=== PATIENT | male | born 1990 ===

== ENCOUNTER 2018-02-06 11:48 | Emergency (ER) | payer OTHER ==
[2018-02-06 12:19] VITALS: BP 143/80
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
== END 2018-02-06 13:08 | disposition home or self-care (01) ==
LOC: UCCORT 11:48
DX: S29.9XXA Unspecified injury of thorax, initial encounter (principal); S06.9X1A Unspecified intracranial injury with loss of consciousness of 30 minutes or less, initial encounter; V86.59XA Driver of other special all-terrain or other off-road motor vehicle injured in nontraffic accident, initial encounter; Y93.I9 Activity, other involving external motion; Y92.9 Unspecified place or not applicable; F17.210 Nicotine dependence, cigarettes, uncomplicated; Z88.0 Allergy status to penicillin
CPT/HCPCS: 99212; G0463

== ENCOUNTER 2019-03-09 09:55 | Observation (INO) | payer OTHER ==
[~2019-03-09 09:55] MED LIST: Buffered Lidocaine 1% SYRIN* 1 ML/SYRINGE INTRADERM ONE; Famotidine IV* 10 MG/ML 2 ML (20 mg) IV ONE; Lactated Ringers 1000 ML Bag* 1,000 ML IV SCH
[2019-03-09] MEDS ORDERED: Famotidine IV* 10 MG/ML 2 ML (20 mg) ONE (10:14)
[2019-03-09] MEDS ORDERED: Lidocaine 2% PF * 5 ML VIAL ONE (11:22)
[2019-03-09] MEDS ORDERED: Cisatracurium* 2 MG/ML MDV 5 ML ONE (11:22)
[2019-03-09] MEDS ORDERED: fentaNYL* 50 MCG/ML 5 ML VIAL (250 MCG VIAL) ONE (11:22)
[2019-03-09] MEDS ORDERED: Propofol* 10 MG/ML 20 ML BTL ONE ×2 (11:22→13:37)
[2019-03-09] MEDS ORDERED: Dexamethasone IV* 4 MG/ML 1 ML (4 MG) ONE (11:22)
[2019-03-09] MEDS ORDERED: Ondansetron INJ* 2 MG/ML VIAL ONE (11:22)
[2019-03-09] MEDS ORDERED: Midazolam* 1 MG/ML 5 ML VIAL (5 MG) ONE (11:22)
[2019-03-09] MEDS ORDERED: Artificial Tear OPHTH.OINT* 3.5 GM ONE (11:50)
[2019-03-09] MEDS ORDERED: Lidocaine 1% INJ* 10 MG/ML 30 ML SDV ONE ×2 (12:04→16:46)
[2019-03-09] MEDS ORDERED: Bupivacaine 0.25% SDV PF* 10 ML VIAL INJ ONE (12:53)
[2019-03-09] MEDS ORDERED: Phenylephrine 10 MG/ML VIAL* 1 ML VIAL ONE (14:11)
[2019-03-09] MEDS ORDERED: fentaNYL* 50 MCG/ML 2 ML VIAL (100 MCG VIAL) ONE ×2 (15:09→15:57)
[2019-03-09] MEDS ORDERED: Bupivacaine 0.5%* 50 ML VIAL ONE (16:46)
[2019-03-09] MEDS ORDERED: oxyCODONE/Acetamin 5/325 MG* TAB PO PRN (17:20)
[2019-03-09] MEDS ORDERED: Ondansetron INJ* 2 MG/ML VIAL IV PRN (17:20)
[2019-03-09] MEDS ORDERED: Acetaminophen TAB* 325 MG PO PRN (17:20)
[2019-03-09] MEDS ORDERED: Calcium Carbonate TAB* 1250 MG (CALCIUM 500 MG) PO SCH (18:00)
[2019-03-09] MEDS ORDERED: Lactated Ringers 1000 ML Bag* 1,000 ML IV SCH (18:00)
[2019-03-09] MEDS ORDERED: Calcium Carbonate TAB* 1250 MG (CALCIUM 500 MG) ONE (18:33)
[2019-03-09] MEDS: Ibuprofen TAB* 600 MG PO PRN (18:42)
[2019-03-09] MEDS: Calcium Carbonate TAB* 1250 MG (CALCIUM 500 MG) PO SCH (22:12)
--- NOTE | 2019-03-09 23:39 | OP ---
CC: Joanna Howard M.D.; Raymundo Law M.D.* OPERATIVE REPORT: DATE OF OPERATION: 03/09/19 - Inpatient, room SSU 339- DATE OF : 89 SERVICE: General Surgery. ATTENDING SURGEON: Michaela Armstrong M.D. BORING MACHINE OPERATOR: Paz Yung M.D. ANESTHESIOLOGIST: Dr. Kody Ray. PRIMARY CARE PHYSICIAN: Joanna Howard M.D. CANE PUSHER: Raymundo Law M.D. ANESTHESIA: General endotracheal anesthesia. PRE-OP DIAGNOSIS: Graves disease. POST-OP DIAGNOSIS: Graves disease. OPERATIVE PROCEDURE: Total thyroidectomy. ESTIMATED BLOOD LOSS: Approximately 50 cc. INTRAOPERATIVE FINDINGS: Enlarged hypervascular thyroid gland, all 4 parathyroid glands visualized and intact. INDICATIONS FOR SURGERY: Mr. Weiss is a very pleasant 28-year-old gentleman with a history of Graves disease that has been uncontrolled despite medical management. He did not wish to undergo MALIK therapy and he instead of wished to undergo a total thyroidectomy. He therefore gave his informed consent for a total thyroidectomy. He understood the risks, benefits, and alternatives of the procedure and he wished to proceed. DESCRIPTION OF PROCEDURE: The patient was brought back to the operating room and placed on the operating table in the supine position. Sequential compression devices were placed on the bilateral lower extremities for DVT prophylaxis. No antibiotics were administered. General endotracheal anesthesia was induced. The electrodes for the nerve monitor were attached to the patient. Both of his arms were tucked and a time-out was performed prior to administering local anesthesia into his neck. Local anesthesia consisting of 0.25% Marcaine and 1% lidocaine was infiltrated to the anterior neck. Next, his neck was prepped and draped in normal sterile fashion, and prior to beginning the procedure, a time-out was performed verifying the patient's name, MR number, and the procedure to be performed, which was a total thyroidectomy. The decision was to begin on the right side given that it was slightly larger and a transverse incision was made in the anterior neck in a natural crease line approximately 2 to 3 fingerbreadths above the sternal notch. The skin was divided down to the subcutaneous tissue. The subcutaneous tissue was divided and the platysma was also divided. Next, the inferior and superior subplatysmal flaps were developed, and then the median raphe between the strap muscles was identified and divided superiorly towards the thyroid cartilage and inferiorly towards the clavicles. Next, the strap muscles were retracted laterally and the isthmus of the thyroid was divided on using LigaSure at the midline. Once this was done, the inferior poles of the thyroids were lifted up and elevated, and the 2 EDWIN veins were divided and down to the trachea. Next, the isthmus was divided off of the trachea superiorly and inferiorly and then retracted towards the right side. The medial attachments of the right thyroid lobe were divided using a LigaSure and then once this was done, the thyroid lobe was able to be rotated medially to develop the lateral space after the strap muscles were gently retracted off of the thyroid lobe. Once the lateral space was developed, the middle thyroid vein was identified and divided and attention was then turned towards dividing the superior pole vessels using a combination of LigaSure and 2-0 silk ties. Once this was done, the thyroid was somewhat more mobile; however, the thyroid itself was a very enlarged hypervascular thyroid with a very large tubercle, so it was somewhat difficult to rotate medially and elevate up and out of the neck. The inferior parathyroid was identified and there was several normal appearing lymph nodes around the thyroid. Once the superior pole vessels were taken down, the thyroid lobe was again rotated medially out of the neck and the right recurrent laryngeal nerve was identified and its entire course was traced up to the insertion point of the cricothyroid membrane. Given how large tubercle was, it was difficult to divide the entire thyroid lobe safely away from the recurrent laryngeal nerve. Therefore, a very small amount of thyroid tubercle was left near the insertion point of the recurrent laryngeal nerve and then the remainder of the thyroid lobe was divided off of the trachea using a LigaSure and was carried off the table as specimen. The upper pole was marked with a stitch. Of note, the right upper parathyroid was also identified and it was very carefully skeletonized off of the right upper lobe and preserved on its pedicle. Both of the right upper and lower parathyroid glands appeared to be viable. Next, attention was turned towards the left thyroid lobe and in a similar fashion, the medial attachments of the left thyroid lobe to the trachea were divided using LigaSure and then the thyroid lobe was rotated medially and lateral space was developed by retracting off the strap muscles and using blunt dissection. The middle thyroid vein was identified and divided and then the superior pole vessels were taken down using a combination of LigaSure and 2-0 silk ties. The left recurrent laryngeal nerve was identified visually and with the nerve monitor. It was traced to its insertion point and protected. Once this was done, the thyroid lobe was divided off of the trachea using a LigaSure and carried off of the table as specimen after marking the upper pole with a stitch. The left lower parathyroid was noted to be somewhat enlarged, but it was also viable and left on a pedicle. The left upper parathyroid was also identified and its pedicle was also skeletonized and it also appeared to be viable and healthy after removing thyroid gland. Next, attention was turned towards obtaining hemostasis in the neck on both the right and lateral neck spaces after a Valsalva maneuver. After hemostasis was obtained, Tisseel was placed into the neck, and then the strap muscles were reapproximated using 3-0 Vicryl sutures in an interrupted fashion, and then the platysma was closed using interrupted 3-0 Vicryl sutures, and then the skin was closed using a running 4-0 Prolene suture. A sterile dressing was then placed and the patient' s anesthesia was reversed and he was taken to the PACU in stable condition. At the end of the case, all counts were correct and I was present during the entirety of the case. [id number]/[facility] #: [id number] JOHAN
[2019-03-10] MEDS ORDERED: Levothyroxine TAB* 150 MCG TAB PO SCH (06:00)
[2019-03-10 08:40] VITALS: BP 126/75
--- NOTE | 2019-03-10 09:04 | PN ---
Progress Note - Progress Note Date of Service: 03/10/19 Note: POD#1 s/p thyroidectomy Afeb, VS OK Erna liqs Voiding Throat sore, but not much pain No numbness or tingling Incis dressing clean and dry, no edema Voice normal Ca++ 9.4 Doing well s/p thyroidectomy Disch home
[2019-03-10] MEDS: Ibuprofen TAB* 600 MG PO PRN (09:12)
[2019-03-10] MEDS: Calcium Carbonate TAB* 1250 MG (CALCIUM 500 MG) PO SCH (09:15)
--- NOTE | 2019-03-10 11:43 | DS ---
DISCHARGE SUMMARY: DATE OF ADMISSION: 03/09/19 DATE OF DISCHARGE: 03/10/19 SERVICE: General Surgery. ATTENDING SURGEON: Michaela Armstrong MD ADMISSION DIAGNOSIS: Graves' disease. DISCHARGE DIAGNOSIS: Graves' disease. OPERATION: Total thyroidectomy. HOSPITAL COURSE: Mr. Weiss is a healthy 28-year-old gentleman with a history of Graves' disease, uncontrolled by medical management. He underwent an elective total thyroidectomy on 03/09/19 and was admitted overnight for observation. On day of discharge on postop day 1, he was doing very well. He had very few complaints other than a sore throat and a small amount of neck soreness. He was able to tolerate a regular diet. He was ambulating. He was urinating on his own. His vital signs are stable. He was determined to be an appropriate candidate for discharge. PHYSICAL EXAMINATION: Temperature is 98.4, heart rate is 86, respiratory rate is 16, O2 sat 97% O2 on room air, blood pressure is 126/75. General: He is a well- appearing young man, sitting up, in no apparent distress. Neck: His incision is clean, dry, and intact. No swelling, no erythema. LABORATORY VALUES: Calcium is 9.4, PTH is 22.8. DISPOSITION: To home. CONDITION: Good. DISCHARGE MEDICATIONS: Calcitriol 0.5 mcg p.o. daily, Tums regular strength 2 tabs p.o. 4 times a day x7 days, then 2 tabs daily x14 days, and Percocet 5/325 mg p.o. q.6 hours p.r.n. for severe pain. DISCHARGE INSTRUCTIONS: The patient was given a handout with discharge instructions and was told to return to the emergency room or call the covering surgeon on-call for fevers, chills, nausea, vomiting, increasing neck swelling, and dyspnea. He will follow up in the office in 1 week to have his suture removed. [id number]/[facility] #: [id number] JOHAN
== END 2019-03-10 09:48 | disposition home or self-care (01) | DRG 404 ==
LOC: OR 09:55 → INTOOBSV 17:20 → SSU 17:20
PROVIDERS: ADMIT Surgery; ATTEND Surgery
DX: E05.00 Thyrotoxicosis with diffuse goiter without thyrotoxic crisis or storm (principal); J45.909 Unspecified asthma, uncomplicated; Z83.49 Family history of other endocrine, nutritional and metabolic diseases; Z87.891 Personal history of nicotine dependence; Z88.0 Allergy status to penicillin; Z83.3 Family history of diabetes mellitus; Z80.42 Family history of malignant neoplasm of prostate; Z82.49 Family history of ischemic heart disease and other diseases of the circulatory system
CPT/HCPCS: 36415; 82310; 83970; 88307; 96374; A9270-GY; C1776; G0378; J1100; J2250; J2405; J2704; J3010; J3490

== ENCOUNTER 2019-04-26 14:40 | Emergency (ER) | payer OTHER ==
[2019-04-26 14:56] VITALS: BP 118/82
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
[2019-04-26] MEDS: Lidocaine 1% MPF ** 5 ML VIAL INJ ONE (16:06)
== END 2019-04-26 16:35 | disposition home or self-care (01) ==
LOC: UCEAST 14:40
DX: S61.412A Laceration without foreign body of left hand, initial encounter (principal); W26.0XXA Contact with knife, initial encounter; Y92.9 Unspecified place or not applicable; Z88.0 Allergy status to penicillin; Z87.891 Personal history of nicotine dependence
CPT/HCPCS: 99202; G0463